=== PATIENT | female | born 1975 | race Caucasian/White ===

== ENCOUNTER 2022-07-22 15:19 | Inpatient (IN) | payer BC, OTHER ==
[2022-07-22] MEDS ORDERED: Sodium Chloride 0.9% 10 ML Syringe FLUSH PRN (16:43)
[2022-07-22] MEDS ORDERED: Albuterol 0.083% 2.5 MG/3 ML Neb Soln NEB ONE (16:56)
[2022-07-22] MEDS ORDERED: Sodium Chloride 0.9% 1,000 ML IV ONE (18:12)
[2022-07-22] MEDS ORDERED: cefTRIAXone 2 GM in Sodium Chloride 0.9% 100 ML IV ONE (18:47)
[2022-07-22] MEDS ORDERED: Albuterol 0.5% 2.5 MG/0.5 ML Neb Soln NEB PRN (21:11)
[2022-07-22] MEDS: Insulin Lispro 100 Unit/ML 3 ML KwikPen SUBCUT SCH (21:58)
[2022-07-22] MEDS: predniSONE 20 MG Tab PO SCH (21:59)
[2022-07-22] MEDS: Sodium Chloride 0.9% 1,000 ML IV SCH (22:00)
[2022-07-22] MEDS: Albuterol 0.083% 2.5 MG/3 ML Neb Soln NEB SCH (22:06)
[2022-07-23] MEDS: Albuterol 0.083% 2.5 MG/3 ML Neb Soln NEB SCH ×6 (02:09→21:56)
[2022-07-23] MEDS: Sodium Chloride 0.9% 1,000 ML IV SCH ×3 (04:14→22:25)
[2022-07-23] MEDS: predniSONE 20 MG Tab PO SCH ×2 (08:54→21:25)
[2022-07-23] MEDS: Codeine/Promethazine 10-6.25 MG/5 ML Syrup 5 ML UD Cup PO SCH ×3 (08:54→21:15)
[2022-07-23] MEDS: Enoxaparin 40 MG/0.4 ML Syringe SUBCUT SCH (08:54)
[2022-07-23] MEDS: Meropenem 500 MG in Sodium Chloride 0.9% 100 ML IV SCH ×3 (08:54→21:13)
[2022-07-23] MEDS: Insulin Lispro 100 Unit/ML 3 ML KwikPen SUBCUT SCH ×4 (09:01→22:26)
[2022-07-24] MEDS: Albuterol 0.083% 2.5 MG/3 ML Neb Soln NEB SCH ×4 (01:37→14:47)
[2022-07-24] MEDS: Meropenem 500 MG in Sodium Chloride 0.9% 100 ML IV SCH ×3 (04:09→14:00)
[2022-07-24] MEDS: Codeine/Promethazine 10-6.25 MG/5 ML Syrup 5 ML UD Cup PO SCH ×3 (04:10→13:53)
[2022-07-24] MEDS: Enoxaparin 40 MG/0.4 ML Syringe SUBCUT SCH (06:46)
[2022-07-24] MEDS: Sodium Chloride 0.9% 1,000 ML IV SCH (06:49)
[2022-07-24] MEDS: Insulin Lispro 100 Unit/ML 3 ML KwikPen SUBCUT SCH ×2 (08:13→12:23)
[2022-07-24] MEDS: predniSONE 20 MG Tab PO SCH (08:15)
== END 2022-07-24 15:25 | disposition home or self-care (01) | DRG 193 ==
LOC: JD.ED 15:19 → JD.ICU 18:54 → JD.MS 07-23 15:52
PROVIDERS: ADMIT Internal Medicine; ATTEND Internal Medicine
DX: J18.9 Pneumonia, unspecified organism (principal); J96.01 Acute respiratory failure with hypoxia; E11.9 Type 2 diabetes mellitus without complications; Z20.822 Contact with and (suspected) exposure to COVID-19; G89.29 Other chronic pain; M54.9 Dorsalgia, unspecified; F17.210 Nicotine dependence, cigarettes, uncomplicated; Z90.49 Acquired absence of other specified parts of digestive tract; Z79.84 Long term (current) use of oral hypoglycemic drugs; Z79.52 Long term (current) use of systemic steroids; Z79.899 Other long term (current) drug therapy; Z86.19 Personal history of other infectious and parasitic diseases
CPT/HCPCS: 36415; 71045; 71045-26; 80053; 82947; 85025; 86140; 86738; 94640; 94762; 96374; 99285-25; A9270-GY; J0696; J1650; J1815; J2185; J3490; J7030; J7512

== ENCOUNTER 2023-12-09 23:08 | Emergency (ER) | payer OTHER ==
[2023-12-10 00:02] LABS: BASOPHILS ABSOLUTE AUTO 0.1 K/mm3 (0.0-0.2); BASOPHILS PERCENT AUTO 0.5 % (0.0-1.0); EOSINOPHILS ABSOLUTE AUTO 0.2 K/mm3 (0.0-0.4); EOSINOPHILS PERCENT AUTO 1.9 % (0.0-6.0); HEMATOCRIT 44.5 % (37.0-47.0); HEMOGLOBIN 15.6 gm/dl (12.0-16.0); IMMATURE GRAN ABSOLUTE AUTO 0.03 K/mm3 (0.00-0.05); IMMATURE GRAN PERCENT AUTO 0.3 % (0.0-0.4); LYMPHOCYTES ABSOLUTE AUTO 4.9 K/mm3 (1.0-4.8); LYMPHOCYTES PERCENT AUTO 44.7 % (24.0-44.0); MEAN CORPUSCULAR HEMOGLOBIN 34.3 pg (28.0-32.0); MEAN CORPUSCULAR HGB CONC 35.1 g/dl (32.0-36.0); MEAN CORPUSCULAR VOLUME 97.8 fl (83.0-99.0); MEAN PLATELET VOLUME 9.8 fl (9.4-12.3); MONOCYTES ABSOLUTE AUTO 0.7 K/mm3 (0.0-0.8); NEUTROPHILS ABSOLUTE AUTO 5.1 K/mm3 (1.8-7.7); NEUTROPHILS PERCENT AUTO 46.6 % (41.0-71.0); PLATELET COUNT,PLT 258 K/mm3 (150-400); RED BLOOD CELL COUNT 4.55 M/mm3 (4.10-5.30); WHITE BLOOD CELL COUNT,WBC 10.91 K/mm3 (3.9-11.3)
[2023-12-10 00:16] LABS: A/G RATIO 1.3 (1-2); ALANINE AMINOTRANSFERASE,ALT 29 U/L (14-59); ALBUMIN 3.8 g/dl (3.4-5.0); ALKALINE PHOSPHATASE 80 U/L (46-116); ANION GAP 17.9 (5-15); BILIRUBIN TOTAL 0.3 mg/dL (0.2-1.0); BLOOD UREA NITROGEN,BUN 11 mg/dL (7-18); BUN/CREATININE RATIO 13.8 (14-18); CALCIUM 9.1 mg/dL (8.5-10.1); CARBON DIOXIDE,CO2 21 mEq/L (21-32); CHLORIDE,CL 107 mEq/L (98-107); CREATININE 0.8 mg/dL (0.55-1.02); ESTIMATED GFR 90 mL/min (>60); GLUCOSE RANDOM 166 mg/dL (70-99); PROTEIN TOTAL,TP 6.8 g/dl (6.4-8.2); SODIUM,NA 142 mEq/L (136-145)
[2023-12-10 00:21] LABS: TROPONIN I HIGH SENSITIVITY 145 pg/mL (<=51)
[2023-12-10 00:22] LABS: ASPARTATE AMNIOTRANSFERASE,AST 23 U/L (15-37); POTASSIUM,K 3.9 mEq/L (3.5-5.1)
[2023-12-10] MEDS: Famotidine 20 MG/2 ML SDV IVPUSH ONE (00:51)
[2023-12-10] MEDS: Sodium Chloride 0.9% 1,000 ML IV ONE (00:51)
[2023-12-10] MEDS: Heparin Sodium 5,000 Units/ML Vial IVPUSH ONE (08:01)
[2023-12-10] MEDS: Clopidogrel 75 MG Tab PO ONE (08:02)
[2023-12-10] MEDS: atorvaSTATin 40 MG Tab PO ONE (08:02)
[2023-12-10 08:06] LABS: MAGNESIUM 1.6 mg/dL (1.8-2.4); PHOSPHORUS 4.5 mg/dL (2.6-4.7)
[2023-12-10 08:28] LABS: D-DIMER QUANTITATIVE 0.26 mg/L (0.19-0.50)
[2023-12-10 08:29] LABS: PTT,PARTIAL THROMBOPLSTIN TIME 25.8 SECONDS (21.7-31.4)
[2023-12-10] MEDS: Magnesium Sulfate/Water 2 GM in Premix Bag 1 BAG IV ONE (09:08)
[2023-12-10] MEDS: Sodium Chloride 0.9% 1,000 ML IV SCH (09:39)
[2023-12-10] MEDS: Heparin Sodium/D5W 25,000 UNITS/500 ML BAG IV SCH (09:48)
== END 2023-12-10 10:04 ==
LOC: JD.ED 23:08
DX: I21.4 Non-ST elevation (NSTEMI) myocardial infarction (principal); E83.42 Hypomagnesemia; F17.210 Nicotine dependence, cigarettes, uncomplicated; R79.89 Other specified abnormal findings of blood chemistry; E11.9 Type 2 diabetes mellitus without complications; Z79.899 Other long term (current) drug therapy; Z79.84 Long term (current) use of oral hypoglycemic drugs
CPT/HCPCS: 36415; 71045; 80053; 83735; 83880; 84100; 84484; 85025; 85379; 85730; 93005; 96365; 96375; 96376; 99285; A9270; J1644; J3475; J3490; J7030; 93010